=== PATIENT | female | born 1985 | race African-American/Black ===

== ENCOUNTER 2017-01-04 18:08 | Emergency (ER) | payer SELFPAY ==
[2017-01-04 19:11] VITALS: BP 147/93
--- NOTE | 2017-01-04 19:23 | ER Document Report ---
ED Medical Screen (RME) - General Chief Complaint: Cough Stated Complaint: COUGH,CONGESTION Time seen by provider: 19:21 Mode of Arrival: Ambulatory Information source: Patient Notes: 31-year-old female presents to ED for congestion cough denies any fever for the last week. 11/20/2016 last menstrual period. I have greeted and performed a rapid initial assessment of this patient. A comprehensive ED assessment and evaluation of the patient, analysis of test results and completion of medical decision making process will be conducted by an additional ED providers. TRAVEL OUTSIDE OF THE [place] IN LAST 30 DAYS: No - Related Data Allergies/Adverse Reactions: No Known Allergies Allergy (Verified 05/11/14 07:01) Past Medical History Neurological Medical History: Reports: Hx Migraine Past Surgical History: Reports: Hx Oral Surgery - wisdom teeth - Immunizations Hx Diphtheria, Pertussis, Tetanus Vaccination: Yes Physical Exam - Vital signs Vitals: Temp Pulse Resp BP Pulse Ox 99.2 F 104 H 20 147/93 H 99 01/04/17 19:10 01/04/17 19:10 01/04/17 19:10 01/04/17 19:10 01/04/17 19:10 Course - Vital Signs Vital signs: Temp Pulse Resp BP Pulse Ox 99.2 F 104 H 20 147/93 H 99 01/04/17 19:10 01/04/17 19:10 01/04/17 19:10 01/04/17 19:10 01/04/17 19:10
== END 2017-01-04 22:02 | disposition left against medical advice (07) ==
LOC: ER 18:08
DX: R05 Cough (principal)
CPT/HCPCS: 99281

== ENCOUNTER 2018-05-31 11:38 | Emergency (ER) | payer SELFPAY ==
[2018-05-31 12:14] VITALS: BP 144/96
[2018-05-31] MEDS ORDERED: IBUPROFEN 800 MG TABLET PO ONE (12:54)
[2018-05-31] MEDS ORDERED: PSEUDOEPHEDRINE HCL 30 MG TABLET PO ONE (12:54)
--- NOTE | 2018-05-31 12:56 | ER Document Report ---
HPI - HPI Patient complains to provider of: Cold Onset: Other - 4 days Onset/Duration: Persistent Quality of pain: Achy, Pressure Pain Level: 5 Context: Patient presents complaining of head cold symptoms for the past 4 days. Patient reports sore throat, sinus pressure and congestion. Patient denies any cough or fever. Associated Symptoms: Earache, Rhinnorhea, Sinus pain/drainage, Sore throat. denies: Nonproductive cough, Fever, Nausea Exacerbated by: Denies Relieved by: Denies Similar symptoms previously: Yes Recently seen / treated by doctor: No - ROS ROS below otherwise negative: Yes Systems Reviewed and Negative: Yes All other systems reviewed and negative - CONSTITUTIONAL Constitutional: DENIES: Fever, Chills - EENT EENT: REPORTS: Sore Throat, Nasal Drainage-Clear, Congestion - RESPIRATORY Respiratory: DENIES: Trouble Breathing, Coughing - GASTROINTESTINAL Gastrointestinal: DENIES: Nausea, Patient vomiting - REPRODUCTIVE Reproductive: DENIES: : - DERM Skin Color: Normal Skin Problems: None Past Medical History - General Information source: Patient - Social History Smoking Status: Current Every Day Smoker Chew tobacco use (# tins/day): No Smoking Education Provided: Yes Frequency of alcohol use: Occasional Drug Abuse: None Occupation: Daycare provider Lives with: Family Family History: None Patient has suicidal ideation: No Patient has homicidal ideation: No - Medical History Medical History: Negative Neurological Medical History: Reports: Hx Migraine Renal/ Medical History: Denies: Hx Peritoneal Dialysis Past Surgical History: Reports: Hx Oral Surgery - wisdom teeth - Immunizations Hx Diphtheria, Pertussis, Tetanus Vaccination: Yes Vertical Provider Document - CONSTITUTIONAL Agree With Documented VS: Yes Exam Limitations: No Limitations General Appearance: WD/WN, No Apparent Distress - INFECTION CONTROL TRAVEL OUTSIDE OF THE [place] IN LAST 30 DAYS: No - HEENT HEENT: Pharyngeal Tenderness, Pharyngeal Erythema. negative: Pharyngeal Exudate Notes: clear rhinorrhea, +nasal congestion - NECK Neck: Normal Inspection, Supple. negative: Lymphadenopathy-Left, Lymphadenopathy-Right - RESPIRATORY Respiratory: Breath Sounds Normal, No Respiratory Distress - CARDIOVASCULAR Cardiovascular: Regular Rate, Regular Rhythm - BACK Back: Normal Inspection - MUSCULOSKELETAL/EXTREMETIES Musculoskeletal/Extremeties: MAEW, FROM - NEURO Level of Consciousness: Awake, Alert, Appropriate Motor/Sensory: No Motor Deficit - DERM Integumentary: Warm, Dry, No Rash Course - Vital Signs Vital signs: Temp Pulse Resp BP Pulse Ox 98.9 F 95 16 144/96 H 100 05/31/18 12:05 05/31/18 12:05 05/31/18 12:05 05/31/18 12:05 05/31/18 12:05 - Laboratory Laboratory results interpreted by me: 05/31/18 13:56 Labs- Entire Visit 05/31/18 12:52 Group A Strep Rapid NEGATIVE Discharge - Discharge Clinical Impression: Sore throat Upper respiratory infection Qualifiers: URI type: unspecified URI Qualified Code(s): J06.9 - Acute upper respiratory infection, unspecified Condition: Stable Disposition: HOME, SELF-CARE Instructions: Sore Throat ([facility]), Upper Respiratory Illness ([facility]) Additional Instructions: Return immediately for any new or worsening symptoms Followup with your primary care provider, call tomorrow to make a followup appointment Throat culture is pending, we will call if you need any different treatment Prescriptions: Fluticasone Propionate [Flonase Nasal [place] 50 Mcg/[place] 16 gm] 2 spray NASL DAILY #1 bottle Guaifenesin/Pseudoephedrne HCl [Mucinex D ER Tablet] 1 each PO Q12 PRN #12 tab.er.12h PRN Reason: Naproxen [Naprosyn 250 Nmg Tablet] 1 tab PO BID #14 tablet Forms: Smoking Cessation Education, Return to Work Referrals: [facility] [Provider Group] - Follow up as needed
== END 2018-05-31 14:05 | disposition home or self-care (01) ==
LOC: ER 11:38
DX: J02.9 Acute pharyngitis, unspecified (principal); J06.9 Acute upper respiratory infection, unspecified; R09.81 Nasal congestion; J34.89 Other specified disorders of nose and nasal sinuses; H92.09 Otalgia, unspecified ear; F17.200 Nicotine dependence, unspecified, uncomplicated
CPT/HCPCS: 87070; 87880; 99283

== ENCOUNTER 2019-07-26 09:39 | Emergency (ER) | payer SELFPAY ==
[2019-07-26 09:47] VITALS: BP 158/112
[2019-07-26] MEDS ORDERED: DEXAMETHASONE CONC 1 MG/ML SOLN PO ONE (10:13)
--- NOTE | 2019-07-26 10:13 | ER Document Report ---
ED ENT - General Chief Complaint: Sore Throat Stated Complaint: COUGH,CONGESTION,NAUSEA Time Seen by Provider: 07/26/19 10:05 Primary Care Provider: [facility] [Provider Group] - Follow up as needed TRAVEL OUTSIDE OF THE [place] IN LAST 30 DAYS: No - HPI Notes: 34-year-old female to the emergency department with complaints of 1 week of cough, chest congestion, headache, generalized body aches, sore throat. She states that she is been taking vaxa-jhc-rjyeklf medicines such as TheraFlu, Tylenol severe cold, and Robitussin. She states that she has not gotten better despite these znhw-zki-lyvifce remedies. She denies any recent fevers. She denies any recent sick contacts that she knows of. She does smoke. - Related Data Allergies/Adverse Reactions: No Known Allergies Allergy (Verified 07/26/19 09:54) Past Medical History - General Information source: Patient - Social History Smoking Status: Current Every Day Smoker Chew tobacco use (# tins/day): No Frequency of alcohol use: Rare Drug Abuse: None Family History: Reviewed & Not Pertinent Patient has suicidal ideation: No Patient has homicidal ideation: No Neurological Medical History: Reports: Hx Migraine Renal/ Medical History: Denies: Hx Peritoneal Dialysis Past Surgical History: Reports: Hx Oral Surgery - wisdom teeth - Immunizations Hx Diphtheria, Pertussis, Tetanus Vaccination: Yes Review of Systems - Review of Systems Constitutional: Chills, Malaise. denies: Fever EENT: Nose congestion, Throat pain. denies: Ear pain, Throat swelling, Mouth swelling Cardiovascular: denies: Chest pain, Palpitations, Dyspnea, Syncope, Dizziness, Lightheaded Respiratory: Cough. denies: Hurts to breathe, Short of breath, Sputum Gastrointestinal: denies: Abdominal pain, Diarrhea, Nausea, Vomiting Genitourinary: No symptoms reported Female Genitourinary: No symptoms reported Musculoskeletal: No symptoms reported Skin: No symptoms reported Hematologic/Lymphatic: No symptoms reported Neurological/Psychological: No symptoms reported -: Yes All other systems reviewed and negative Physical Exam - Vital signs Vitals: Temp Pulse Resp BP 98.4 F 91 18 158/112 H 07/26/19 09:47 07/26/19 09:47 07/26/19 09:47 07/26/19 09:47 Interpretation: Hypertensive - General General appearance: Appears well, Alert In distress: None - HEENT Head: Normocephalic, Atraumatic Eyes: Normal Cornea: Normal Pupils: PERRL Ears: Normal External canal: Normal Tympanic membrane: Normal Sinus: Normal. No: Tenderness Nasal: Clear rhinorrhea. No: Bloody discharge Mouth/Lips: Normal. No: Angioedema Mucous membranes: Normal Pharynx: Erythema, Post nasal drainage, Tonsillar hypertrophy - Bilateral symmetric tonsillar hypertrophy, approximately 1+ bilaterally. No evidence for peritonsillar abscess. There is no ludwigs angina. Airway is grossly patent. No: Exudate, Peritonsillar abscess, Retropharyngeal abscess, Uvular edema, Potential airway comprom. Neck: Normal, Lymphadenopathy - Mild anterior lymphadenopathy., Supple. No: Meningismus - Respiratory Respiratory status: No respiratory distress Chest status: Nontender. No: Pain on movement, Pain with cough, Accessory muscle use Breath sounds: Nonproductive cough. No: Rales, Rhonchi, Stridor, Wheezing Chest palpation: Normal - Cardiovascular Rhythm: Regular Heart sounds: Normal auscultation Murmur: No - Abdominal Inspection: Normal Distension: No distension Bowel sounds: Normal Tenderness: Nontender Organomegaly: No organomegaly - Back Back: Normal, Nontender. No: CVA tenderness - Extremities General upper extremity: Normal inspection, Nontender, Normal color, Normal ROM, Normal temperature General lower extremity: Normal inspection, Nontender, Normal color, Normal ROM, Normal temperature - Neurological Neuro grossly intact: Yes Cognition: Normal Orientation: AAOx4 [place] Coma Scale Eye Opening: Spontaneous [place] Coma Scale Verbal: Oriented [place] Coma Scale Motor: Obeys Commands [place] Coma Scale Total: 15 Speech: Normal Motor strength normal: LUE, RUE, LLE, RLE Sensory: Normal - Skin Skin Temperature: Warm Skin Moisture: Dry Skin Color: Normal Course - Re-evaluation Re-evalutation: Chest X-Ray 07/26/19 10:13 IMPRESSION: No focal consolidation or other evidence of acute cardiopulmonary process. IMpressionL URI, patel end patient home with medicines for symptomatic relief. Likely viral in nature, do no think that ABx are necessary at this time. Encouraged to return if worsening symptoms. Patient agrees with the plan. - Vital Signs Vital signs: Temp Pulse Resp BP Pulse Ox 98.4 F 91 18 158/112 H 07/26/19 09:47 10/09/19 09:47 07/26/19 09:47 07/26/19 09:47 Discharge - Discharge Clinical Impression: Sore throat, Flu-like symptoms, Elevated blood pressure reading URI (upper respiratory infection) Qualifiers: URI type: unspecified viral URI Qualified Code(s): J06.9 - Acute upper respiratory infection, unspecified Condition: Stable Disposition: HOME, SELF-CARE Instructions: Sore Throat ([facility]), Upper Respiratory Illness ([facility]) Additional Instructions: PUSH FLUIDS. REST AT HOME. STOP OVER THE COUNTER MEDICINES AND TAKE PRESCRIPTIONS ONLY. FOLLOW UP WITH PRIMARY CARE. Prescriptions: Ibuprofen [Motrin 600 mg Tablet] 600 mg PO Q8HP PRN #24 tablet PRN Reason: Codeine Phosphate/Guaifenesin [Cheratussin AC Syrup] 10 ml PO Q6H #120 ml Cetirizine HCl [Zyrtec 10 mg Tablet] 1 tab PO DAILY #30 tablet Forms: Elevated Blood Pressure, Return to Work Referrals: [facility] [Provider Group] - Follow up as needed
--- NOTE | 2019-07-26 10:40 | RADIOLOGY REPORT (SQ) ---
EXAM DESCRIPTION: CHEST 2 VIEWS COMPLETED DATE/TIME: 07/26/2019 10:30 am REASON FOR STUDY: cough for one week COMPARISON: None. EXAM PARAMETERS: NUMBER OF VIEWS: two views TECHNIQUE: Digital Frontal and Lateral radiographic views of the chest acquired. RADIATION DOSE: NA LIMITATIONS: none FINDINGS: LUNGS AND PLEURA: No opacities, masses or pneumothorax. No pleural effusion. MEDIASTINUM AND HILAR STRUCTURES: No masses or contour abnormalities. HEART AND VASCULAR STRUCTURES: Heart normal size. No evidence for failure. BONES: No acute findings. HARDWARE: None in the chest. OTHER: No other significant finding. IMPRESSION: No focal consolidation or other evidence of acute cardiopulmonary process. TECHNICAL DOCUMENTATION: JOB ID: [id number] [employer]- All Rights Reserved Reading location - IP/workstation name: [email or web address]
== END 2019-07-26 11:30 | disposition home or self-care (01) ==
LOC: ER 09:39
DX: J06.9 Acute upper respiratory infection, unspecified (principal); J02.9 Acute pharyngitis, unspecified; R03.0 Elevated blood-pressure reading, without diagnosis of hypertension; R05 Cough; R09.81 Nasal congestion; R11.0 Nausea
CPT/HCPCS: 99283; 71046; J8540